=== PATIENT | male | born 1980 | race Hispanic/Latino ===

== ENCOUNTER 2017-01-29 08:35 | Emergency (ER) | payer OTHER ==
[2017-01-29 09:57] LABS: Hematocrit 35.2 % (35.5-45.6); Mean Corpuscular HGB Conc 31 % (32-34); Mean Corpuscular Volume 77 fl (84-94); Platelet Count 231 K/mm3 (140-440); Red Blood Count 4.59 M/mm3 (3.65-5.03); Red Cell Distribution Width 15.8 % (13.2-15.2); White Blood Count 15.3 K/mm3 (4.5-11.0)
[2017-01-29 09:58] LABS: Mean Corpuscular Hemoglobin 24 pg (28-32)
[2017-01-29] MEDS ORDERED: MORPHINE IV ONE (10:08)
[2017-01-29 10:10] LABS: Anion Gap 15 mmol/L; BUN/Creatinine Ratio 23.33; Blood Urea Nitrogen 21 mg/dL (9-20); Calcium 8.1 mg/dL (8.4-10.2); Carbon Dioxide 24 mmol/L (22-30); Chloride 103.3 mmol/L (98-107); Glucose 106 mg/dL (75-100); Potassium 3.4 mmol/L (3.6-5.0); Sodium 139 mmol/L (137-145)
[2017-01-29 10:10] LABS: ISTAT Base Excess -2; ISTAT HCO3 23.7; ISTAT PO2 68 (80-105); ISTAT SO2 93; ISTAT TCO2 25
[2017-01-29] MEDS ORDERED: TYLENOL PO ONE (10:12)
--- NOTE | 2017-01-29 10:12 | Emergency Department Report ---
ED Shortness of Breath HPI - General Chief Complaint: Dyspnea/Respdistress Stated Complaint: RESPIRATORY DISTRESS Time Seen by Provider: 01/29/17 09:59 Source: patient, EMS Mode of arrival: Stretcher Limitations: No Limitations - History of Present Illness Initial Comments: 36-year-old male presents to the emergency department complaining of difficulty breathing, cough, and fever. Patient reports symptom onset last night with progressive worsening. Cough has been productive of dark, thick sputum. Patient is complaining of sharp pains in his left lower chest with inspiration. Patient reports a history of frequent pneumonia and states he is currently in town for a conference. There are no other complaints. MD Complaint: shortness of breath, cough -: Gradual, Last night Severity: moderate Pain Scale: 4 Quality: sharp Consistency: intermittent Improves With: nothing Worsens With: inspiration Known History Of: recurrent pnemonia Context: recent travel Associated Symptoms: pain with inspiration, fever, cough, sputum production - Related Data Home Medications Medication Instructions Recorded Confirmed Last Taken ALBUTEROL Inhaler [ProAir HFA 2 puff INHALATION TID PRN 01/29/17 01/29/17 Unknown Inhaler] Desvenlafaxine Succinate [Pristiq 100 mg PO DAILY 01/29/17 01/29/17 Unknown ER] Omeprazole 40 mg PO BID 01/29/17 01/29/17 Unknown Ondansetron [Zofran TAB] 4 mg PO 4XD PRN 01/29/17 01/29/17 Unknown clonazePAM [Klonopin] 1 mg PO BID 01/29/17 01/29/17 Unknown Previous Rx's Medication Instructions Recorded Last Taken Type Azithromycin [Zithromax Z-AMTT] 250 mg PO DAILY #6 tablet 01/29/17 Unknown Rx Cefuroxime Axetil [Ceftin] 500 mg PO Q12H #14 tablet 01/29/17 Unknown Rx oxyCODONE /ACETAMINOPHEN [Percocet 1 tab PO Q6HR PRN #30 tablet 01/29/17 Unknown Rx 5/325] Allergies Allergy/AdvReac Type Severity Reaction Status Date / Time levofloxacin [From Levaquin] AdvReac Rash Verified 01/29/17 09:14 nitrofurantoin AdvReac Rash Verified 01/29/17 09:14 [From Macrobid] nitrofurantoin AdvReac Rash Verified 01/29/17 09:14 macrocrystalline [From Macrobid] tramadol AdvReac Rash Verified 01/29/17 09:14 ED Review of Systems ROS: Stated complaint: RESPIRATORY DISTRESS Other details as noted in HPI Comment: All other systems reviewed and negative Constitutional: fever Respiratory: cough, shortness of breath Cardiovascular: chest pain ED Past Medical Hx - Past Medical History Previous Medical History?: Yes Hx GERD: Yes Hx Kidney Stones: Yes Hx Psychiatric Treatment: Yes (depression) Hx Asthma: Yes Additional medical history: Pneumonia. Sleep Apnea - Surgical History Past Surgical History?: Yes Hx Cholecystectomy: Yes Additional Surgical History: R Nephroctomy. Gastric Bypass. Hernia repair. Tosillectomy. Kidney Stones removal - Family History Family history: no significant - Social History Smoking Status: Never Smoker Substance Use Type: None - Medications Home Medications: Home Medications Medication Instructions Recorded Confirmed Last Taken Type ALBUTEROL Inhaler [ProAir HFA 2 puff INHALATION TID PRN 01/29/17 01/29/17 Unknown History Inhaler] Azithromycin [Zithromax Z-MATT] 250 mg PO DAILY #6 tablet 01/29/17 Unknown Rx Cefuroxime Axetil [Ceftin] 500 mg PO Q12H #14 tablet 01/29/17 Unknown Rx Desvenlafaxine Succinate [Pristiq 100 mg PO DAILY 01/29/17 01/29/17 Unknown History ER] Omeprazole 40 mg PO BID 01/29/17 01/29/17 Unknown History Ondansetron [Zofran TAB] 4 mg PO 4XD PRN 01/29/17 01/29/17 Unknown History clonazePAM [Klonopin] 1 mg PO BID 01/29/17 01/29/17 Unknown History oxyCODONE /ACETAMINOPHEN [Percocet 1 tab PO Q6HR PRN #30 tablet 01/29/17 Unknown Rx 5/325] ED Physical Exam - General Limitations: No Limitations General appearance: alert, in no apparent distress, obese - Head Head exam: Present: atraumatic, normocephalic - Eye Eye exam: Present: normal appearance, PERRL, EOMI - ENT ENT exam: Present: normal exam, normal orophraynx, mucous membranes moist - Neck Neck exam: Present: normal inspection, full ROM. Absent: tenderness - Respiratory Respiratory exam: Present: rales (bilateral anterior diffuse), chest wall tenderness (mild tenderness left lateral lower chest wall). Absent: respiratory distress - Cardiovascular Cardiovascular Exam: Present: regular rate, normal rhythm, normal heart sounds - GI/Abdominal GI/Abdominal exam: Present: soft, normal bowel sounds. Absent: distended, tenderness - Extremities Exam Extremities exam: Present: normal inspection, full ROM. Absent: tenderness - Back Exam Back exam: Present: normal inspection, full ROM. Absent: tenderness - Neurological Exam Neurological exam: Present: alert, oriented X3. Absent: motor sensory deficit - Skin Skin exam: Present: warm, dry, intact ED Course Vital Signs 01/29/17 01/29/17 01/29/17 08:45 09:00 09:32 Temperature 102.1 F H Pulse Rate 118 H Respiratory 16 20 Rate Blood Pressure 127/59 Blood Pressure 127/59 [Right] O2 Sat by Pulse 85 86 89 Oximetry 01/29/17 01/29/17 01/29/17 10:00 11:00 11:06 Temperature Pulse Rate 108 H 101 H Respiratory 22 12 16 Rate Blood Pressure 125/55 116/57 Blood Pressure [Right] O2 Sat by Pulse 93 93 Oximetry 01/29/17 01/29/17 11:30 11:57 Temperature Pulse Rate Respiratory 20 18 Rate Blood Pressure Blood Pressure [Right] O2 Sat by Pulse Oximetry ED Medical Decision Making - Lab Data Result diagrams: 01/29/17 09:31 01/29/17 09:31 - EKG Data -: EKG Interpreted by Me EKG shows normal: sinus rhythm, axis, intervals, QRS complexes, ST-T waves Rate: tachycardia - EKG Data When compared to previous EKG there are: previous EKG unavailable Interpretation: normal EKG - Radiology Data Radiology results: image reviewed interpreted by me: Chest x-ray shows probable right middle lobe pneumonia. - Medical Decision Making Lab and imaging results reviewed and discussed with the patient. Patient has an PSI score of 46 lacing him in the low risk category for complications. Patient has been administered IV Rocephin and IV azithromycin. Patient will be discharged home on oral antibiotic to follow up with his primary care physician. - Differential Diagnosis pneumonia, bronchitis, CHF, PE Critical care attestation.: If time is entered above; I have spent that time in minutes in the direct care of this critically ill patient, excluding procedure time. ED Disposition Clinical Impression: Community acquired pneumonia Disposition: DISCHARGED TO HOME OR SELFCARE Is pt being admited?: No Condition: Stable Instructions: Bacterial Pneumonia (ED) Prescriptions: Azithromycin [Zithromax Z-MATT] 250 mg PO DAILY #6 tablet Cefuroxime Axetil [Ceftin] 500 mg PO Q12H #14 tablet oxyCODONE /ACETAMINOPHEN [Percocet 5/325] 1 tab PO Q6HR PRN #30 tablet PRN Reason: Pain Referrals: PRIMARY CARE, [Primary Care Provider] - 3-5 Days Time of Disposition: 12:30
[2017-01-29] MEDS ORDERED: ROCEPHIN/NS 1 GM/50 ML 1 GM/50 ML BAG IV ONE (10:27)
[2017-01-29] MEDS ORDERED: ZITHROMAX 500 MG in NACL 0.9% 250ML 250 ML IV ONE (10:27)
--- NOTE | 2017-01-29 10:27 | XRay Report ---
Single view chest: History: Shortness of breath. Findings: Cardiomegaly. Trachea midline. Bilateral perihilar airspace opacities. Normal CP angles. Impression: Probable early pulmonary edema and less likely bilateral perihilar pneumonia.
[2017-01-29 10:47] LABS: Anisocytosis 1+; Basophils % (Manual) 0 % (0.0-1.8); Blastocytes % (Manual) 0 %; Diff Status Complete; Hypochromasia Few; Ovalocytes 1+
[2017-01-29] MEDS ORDERED: PERCOCET 5/325 PO ONE (11:30)
[2017-01-29 13:36] VITALS: BP 115/58
== END 2017-01-29 13:36 | disposition home or self-care (01) ==
LOC: ED 08:35
DX: J18.9 Pneumonia, unspecified organism (principal); K21.9 Gastro-esophageal reflux disease without esophagitis; J45.909 Unspecified asthma, uncomplicated
CPT/HCPCS: 36415; 71010; 80048; 82803; 85007; 85025; 87040; 93005; 93010; 96365; 96366; 96367; 96375; 99284; J0456; J0696; J2270; J7050